=== PATIENT | male | born 1990 | race Caucasian/White ===

== ENCOUNTER 2018-11-24 21:43 | Emergency (ER) | payer OTHER ==
[~2018-11-24] VITALS: Ht 170.2 cm; Wt 58.1 kg
[2018-11-24 22:24] LABS: ABSOLUTE NEUTROPHILS 6.5 thou/uL (1.4-8.2); BASOPHILS 1.1 % (0.0-2.0); EOSINOPHILS 7.6 % (0.0-3.0); LYMPHOCYTES 26.7 % (24.0-44.0); MCH 31.7 pg (26.0-34.0); MCHC 34.1 g/dL (28.0-37.0); MCV 93.1 fL (80.0-100.0); MONOCYTES 6.6 % (1.0-8.0); PLATELET COUNT 273 thou/uL (150-400); RBC 4.72 mil/uL (4.50-6.00); RDW 13.8 % (10.5-14.5); WBC 11.2 thou/uL (4.0-11.0)
[2018-11-24] MEDS ORDERED: REMERON15 MG PO (22:27)
[2018-11-24 22:33] LABS: AMP/METHAMP Negative (Negative); BARBITURATES Negative (Negative); BENZODIAZEPINES Negative (Negative); COCAINE Negative (Negative); METHADONE Negative (Negative); OPIATES Negative (Negative); PCP Negative (Negative)
[2018-11-24 22:34] LABS: CALCIUM 8.8 mg/dL (8.5-10.1); CREATININE 0.7 mg/dL (0.7-1.3); POTASSIUM 3.5 mmol/L (3.5-5.1)
[2018-11-24 22:40] LABS: ALBUMIN 4.4 g/dL (3.4-5.0); SALICYLATE 6.9 mg/dL (2.8-20.0); TOTAL BILIRUBIN 0.3 mg/dL (<0.1-1.0); TOTAL PROTEIN 7.2 g/dL (6.4-8.2)
[2018-11-26 08:36] VITALS: BP 134/84
== END 2018-11-26 08:38 ==
LOC: ER 21:43
PROVIDERS: Emergency Medicine
DX: T43.022A Poisoning by tetracyclic antidepressants, intentional self-harm, initial encounter (principal); Y92.89 Other specified places as the place of occurrence of the external cause